=== PATIENT | female | born 1995 | race Caucasian/White ===

== ENCOUNTER 2016-08-06 23:09 | Inpatient (IN) | payer MEDICAID ==
[~2016-08-06] VITALS: Ht 170.2 cm; Wt 54.7 kg
[2016-08-07] MEDS ORDERED: HALOPERIDOL 5 MG TABLET PO PRN (03:45)
[2016-08-07] MEDS ORDERED: ZOLPIDEM TARTRATE 10 MG TABLET PO PRN (03:45)
[2016-08-07] MEDS ORDERED: PNEUMOCOCCAL VACCINE POLYVALENT 0.5 ML VIAL [PPSV23] IM ONE (04:30)
[2016-08-07 06:21] VITALS: BP 128/80
[2016-08-07 08:19] LABS: BASOPHILS # (AUTO) 0.01 K/uL (0.00-0.20); BASOPHILS % (AUTO) 0.1 % (0.0-2.0); EOSINOPHILS # (AUTO) 0.27 K/uL (0.00-0.70); EOSINOPHILS % (AUTO) 3.74 % (1.0-6.0); HEMATOCRIT 36.6 % (36-46); HEMOGLOBIN 12.3 g/dL (12.0-16.0); LYMPHOCYTES # (AUTO) 1.7 K/uL (1.0-4.8); MEAN CORPUSCULAR HEMOGLOBIN 29.4 pg (26.0-34.0); MEAN CORPUSCULAR HGB CONC 33.6 G/dL (31.0-37.0); MEAN CORPUSCULAR VOLUME 87 fL (80-100); MONOCYTES # (AUTO) 0.5 K/uL (0.1-1.0); MONOCYTES % (AUTO) 7.5 % (2.0-9.0); NEUTROPHILS # (AUTO) 4.6 K/uL (1.8-7.7); NEUTROPHILS % (AUTO) 64.6 % (40.0-70.0); PLATELET COUNT (AUTO) 190 K/uL (150-450); RED BLOOD CELL COUNT(AUTO) 4.18 MIL/uL (4.00-5.20); RED CELL DISTRIBUTION WIDTH 12.6 % (11.5-14.5); WHITE BLOOD COUNT (AUTO) 7.1 K/uL (4.5-11.0)
[2016-08-07 08:59] LABS: ALANINE AMINOTRANSFERASE 19 U/L (12-78); ALBUMIN 3.6 g/dL (3.4-5.0); ANION GAP 6 mmol/L (8-16); ASPARTATE AMINOTRANSFERASE 14 U/L (15-37); BILIRUBIN,TOTAL 0.8 mg/dL (0.1-1.0); CALCIUM, TOTAL 8.2 mg/dL (8.8-10.5); CARBON DIOXIDE 26 mmol/L (22-29); CHLORIDE 108 mmol/L (98-107); CHOL/HDL RATIO 2.3 (3.9-5.7); CREATININE 0.81 mg/dL (0.60-1.30); GLOMERULAR FILTR. RATE CALC > 60 mL/min (>60); POTASSIUM 4.3 mmol/L (3.5-5.1); SODIUM SERUM 140 mmol/L (136-145); THYROID STIMULATING HORMONE 0.53 uIU/mL (0.36-3.74); TOTAL PROTEIN, SERUM 5.7 g/dL (6.4-8.2); UREA NITROGEN, BLOOD 9 mg/dL (7-18)
[2016-08-07 09:03] LABS: HEMOGLOBIN A1C 5.6 % (4.5-6.2)
[2016-08-07] MEDS: NICOTINE 21 MG/24 HOUR PATCH TD SCH (12:16)
[2016-08-07 13:53] VITALS: BP 117/64
[2016-08-07 16:04] VITALS: BP 121/81
[2016-08-07] MEDS ORDERED: IBUPROFEN 400 MG TABLET PO PRN (21:30)
[2016-08-07] MEDS ORDERED: ALBUTEROL SULFATE HFA 90 MCG/PUFF 8 GM INHALER IH PRN (21:30)
[2016-08-08 06:40] VITALS: BP 118/74
[2016-08-08] MEDS: NICOTINE 21 MG/24 HOUR PATCH TD SCH (08:12)
[2016-08-08 08:47] VITALS: BP 114/74
[2016-08-08] MEDS: LORazepam 2 MG TABLET PO PRN (16:16)
[2016-08-08 16:38] VITALS: BP 106/69
[2016-08-09 00:15] VITALS: BP 112/68
[2016-08-09 08:06] VITALS: BP 122/68
[2016-08-09] MEDS: NICOTINE 21 MG/24 HOUR PATCH TD SCH (08:41)
[2016-08-09] MEDS: LORazepam 2 MG TABLET PO PRN ×2 (11:19→16:31)
[2016-08-09 16:00] VITALS: BP 119/74
[2016-08-10 06:37] VITALS: BP 117/71
[2016-08-10] MEDS: LORazepam 2 MG TABLET PO PRN (06:53)
[2016-08-10 08:06] VITALS: BP 105/64
[2016-08-10] MEDS: NICOTINE 21 MG/24 HOUR PATCH TD SCH ×2 (09:00→11:43)
== END 2016-08-10 12:38 | disposition home or self-care (01) | DRG 751 ==
LOC: B3A 08-07 03:52 → UNDOADMIN 08-07 03:52 → B2S 08-08 08:50
DX: F33.2 Major depressive disorder, recurrent severe without psychotic features (principal); F17.200 Nicotine dependence, unspecified, uncomplicated; F12.90 Cannabis use, unspecified, uncomplicated; J45.909 Unspecified asthma, uncomplicated; T39.312A Poisoning by propionic acid derivatives, intentional self-harm, initial encounter; Y92.009 Unspecified place in unspecified non-institutional (private) residence as the place of occurrence of the external cause
CPT/HCPCS: 83036; 84439; 84443